=== PATIENT | male | born 1995 | race Caucasian/White ===

== ENCOUNTER 2021-06-04 22:22 | Emergency (ER) | payer BC, OTHER ==
[~2021-06-04] VITALS: Ht 162.6 cm; Wt 68.4 kg
[~2021-06-04 22:22] MED LIST: PROZ20CA11 PO; TRAZ-252 PO
[2021-06-05] MEDS ORDERED: NS 1,000 ML IV ONE (04:35)
[2021-06-05 05:25] LABS: BASO # 0.1 10^3/uL (0.0-0.2); BASO % 0.6 % (0.0-1.0); EOS # 0.2 10^3/uL (0.0-0.5); EOS % 1.9 % (0.0-3.0); HEMATOCRIT 40.6 % (42.0-52.0); HEMOGLOBIN 13.7 g/dl (13.5-17.5); LYMPH # 2.6 10^3/uL (1.5-5.0); LYMPH % 34.3 % (24.0-44.0); MEAN CORPUSCULAR HEMOGLOBIN 28.1 pg (27.0-33.0); MEAN CORPUSCULAR HGB CONC 33.7 g/dl (32.0-36.5); MEAN CORPUSCULAR VOLUME 83.2 fl (80.0-96.0); MONO # 0.5 10^3/uL (0.0-0.8); MONO % 6.2 % (2.0-8.0); NEUTROPHILS # 4.4 10^3/uL (1.5-8.5); NEUTROPHILS % 56.9 % (36.0-66.0); PLATELET COUNT, AUTOMATED 381 10^3/uL (150-450); RED BLOOD COUNT 4.88 10^6/uL (4.30-6.10); WHITE BLOOD COUNT 7.7 10^3/uL (4.0-10.0)
[2021-06-05 05:46] LABS: ALBUMIN 4.3 GM/DL (3.2-5.2); ALT/SGPT 21 U/L (12-78); BILIRUBIN,TOTAL 0.9 MG/DL (0.2-1.0); BLOOD UREA NITROGEN 14 MG/DL (7-18); CALCIUM LEVEL 9.5 MG/DL (8.5-10.1); CARBON DIOXIDE LEVEL 26 MEQ/L (21-32); CHLORIDE LEVEL 105 MEQ/L (98-107); GLOMERULAR FILTRATION RATE > 60.0 (>60); GLUCOSE, FASTING 98 MG/DL (70-100); POTASSIUM SERUM 4.1 MEQ/L (3.5-5.1); SODIUM LEVEL 139 MEQ/L (136-145); TOTAL PROTEIN 7.4 GM/DL (6.4-8.2)
[2021-06-05 05:47] LABS: LIPASE 81 U/L (73-393); MAGNESIUM LEVEL 2.3 MG/DL (1.8-2.4)
[2021-06-05 07:52] VITALS: BP 144/70
== END 2021-06-05 08:00 | disposition home or self-care (01) ==
LOC: M ED 22:22
DX: S39.011A Strain of muscle, fascia and tendon of abdomen, initial encounter (principal); X58.XXXA Exposure to other specified factors, initial encounter; Y92.89 Other specified places as the place of occurrence of the external cause; F17.220 Nicotine dependence, chewing tobacco, uncomplicated; F12.20 Cannabis dependence, uncomplicated

== ENCOUNTER 2025-03-30 14:47 | Inpatient (IN) | payer BC, OTHER ==
[~2025-03-30] VITALS: Ht 162.6 cm; Wt 66.5 kg
[~2025-03-30 14:47] MED LIST changes: -PROZ20CA11 PO; +PROZ20CA12 PO
[2025-03-30 17:56] LABS: PLATELET COUNT, AUTOMATED 304 10^3/uL (150-450)
[2025-03-30 19:10] LABS: ETHYL ALCOHOL (ETHANOL) < 0.003 % (0.000-0.010)
[2025-03-30 19:12] LABS: ALT/SGPT 19 U/L (7.0-40); AST/SGOT 22 U/L (<34); CALCIUM LEVEL 9.5 MG/DL (8.5-10.1); CARBON DIOXIDE LEVEL 25 MMOL/L (20-31); CHLORIDE LEVEL 100 MMOL/L (98-107); CREATININE FOR GFR 0.90 MG/DL (0.70-1.30); GLOMERULAR FILTRATION RATE > 90.0 (>60); POTASSIUM SERUM 3.8 MMOL/L (3.5-5.1); SALICYLATE LEVEL < 3.0 MG/DL (<30); SODIUM LEVEL 136 MMOL/L (136-145)
[2025-03-30 19:22] LABS: AMPHETAMINES LEVEL URINE NEGATIVE (NEGATIVE); BARBITURATES URINE NEGATIVE (NEGATIVE); BENZODIAZEPINES URINE NEGATIVE (NEGATIVE); COCAINE METABOLITE URINE NEGATIVE (NEGATIVE); METHADONE URINE NEGATIVE (NEGATIVE); OPIATES URINE NEGATIVE (NEGATIVE); PHENCYCLIDINE URINE NEGATIVE (NEGATIVE)
[2025-03-30 19:28] LABS: CANNABINOIDS URINE POSITIVE (NEGATIVE)
[2025-03-30] MEDS ORDERED: MOM 30 ML SUSPENSION UDC PO PRN (20:10)
[2025-03-30] MEDS ORDERED: IBUPROFEN 400 MG TAB PO PRN (20:10)
[2025-03-30] MEDS ORDERED: traZODone 50 MG TAB PO PRN (20:10)
[2025-03-30] MEDS ORDERED: MAALOX 30 ML SUSP *UDC PO PRN (20:10)
[2025-03-30] MEDS ORDERED: ACETAMINOPHEN 325 MG TAB PO PRN (20:10)
[2025-03-30] MEDS ORDERED: HOME MED LIST COMPLETE! XX SCH (21:25)
[2025-03-30 23:32] VITALS: BP 129/86; TEMP 97.3; O2SAT 99
[2025-03-31] MEDS ORDERED: OLANZapine ORAL DISINTEGRATING TAB 5MG PO PRN (10:35)
[2025-03-31] MEDS: OLANZapine 5 MG TAB PO SCH (11:00)
[2025-03-31] MEDS: FLUZONE VACCINE TRI PF(25-26) 0.5ML SYRINGE IM.IMMUN ONE (11:39)
[2025-03-31 12:31] VITALS: BP 129/86; TEMP 97.3; O2SAT 99
[2025-03-31 15:26] VITALS: BP 116/72; TEMP 97.1; O2SAT 96
[2025-04-01 06:37] VITALS: BP 105/65; TEMP 97.3; O2SAT 99
[2025-04-01 09:12] LABS: CHOLESTEROL LEVEL 180.0 MG/DL (<200); CHOLESTEROL RISK RATIO 4.52 (<5); LDL CHOLESTEROL 126.2 MG/DL (<100); NON-HDL-C 140.2 MG/DL; TRIGLYCERIDES LEVEL 70.0 MG/DL (<150)
[2025-04-01 15:30] VITALS: BP 117/69; TEMP 97.6; O2SAT 98
[2025-04-01 16:35] VITALS: BP 117/69; TEMP 97.6; O2SAT 98
[2025-04-01] MEDS: OLANZapine 5 MG TAB PO SCH (20:43)
[2025-04-02 06:37] VITALS: BP 125/72; TEMP 97.8; O2SAT 99
[2025-04-02 12:32] VITALS: BP 125/72; TEMP 97.8; O2SAT 99
[2025-04-02 15:06] VITALS: BP 153/78; TEMP 97.6; O2SAT 99
[2025-04-03 14:44] VITALS: BP 130/78; TEMP 98.2; O2SAT 98
[2025-04-04 06:56] VITALS: BP 107/72; TEMP 98.7; O2SAT 97
[2025-04-04] MEDS: FLUTICASONE PROPIONATE 0.05% NASAL SPRAY 16 GM NARES SCH (09:00)
[2025-04-04 15:35] VITALS: BP 122/56; TEMP 98; O2SAT 99
[2025-04-05 06:43] VITALS: BP 121/62; TEMP 98; O2SAT 99
[2025-04-05] MEDS ORDERED: TRAZ-252 PO (09:54)
[2025-04-05] MEDS ORDERED: OLAN5TAB24 PO (09:54)
[2025-04-05] MEDS ORDERED: OLAN1TAB16 PO (09:54)
== END 2025-04-05 11:04 | disposition home or self-care (01) | DRG 751 ==
LOC: M ED 14:47 → M ED INP 20:08 → M PSY 23:13
PROVIDERS: ADMIT Psychiatry & Neurology Neurology; ATTEND Psychiatry & Neurology Psychiatry
DX: F32.3 Major depressive disorder, single episode, severe with psychotic features (principal); F25.1 Schizoaffective disorder, depressive type; R45.851 Suicidal ideations; Z91.51 Personal history of suicidal behavior; F41.1 Generalized anxiety disorder; Z88.8 Allergy status to other drugs, medicaments and biological substances